=== PATIENT | female | born 1940 | race Caucasian/White ===

== ENCOUNTER 2024-05-23 19:40 | Inpatient (IN) | payer OTHER, BC ==
[2024-05-23 21:18] LABS: BASO % 0.8 % (0-2.0); EOS % 5.1 % (0-4.5); HEMATOCRIT 36.9 % (32.4-45.2); HEMOGLOBIN 12.6 GM/dL (10.7-15.3); LYMPH % 11.5 % (8-40); MCH 30.2 pg (25.7-33.7); MCHC 34.1 g/dl (32.0-36.0); MEAN CELL VOLUME 88.5 fl (80-96); MEAN PLT VOLUME 7.9 fl (7.5-11.1); MONO % 8.3 % (3.8-10.2); NEUT % 74.3 % (42.8-82.8); PLATELET COUNT 284 10^3/uL (134-434); RBC 4.17 M/mm3 (3.60-5.2); RDW 13.4 % (11.6-15.6); WHITE BLOOD COUNT 6.6 K/mm3 (4.0-10.0)
[2024-05-23 21:31] LABS: INR 1.14 (0.83-1.09); PROTHROMBIN TIME (PATIENT) 13.1 SEC (9.7-13.0)
[2024-05-23 21:33] LABS: ACTIVATED PTT 40.3 SECONDS (25.2-36.5)
[2024-05-23 21:51] LABS: POTASSIUM 3.9 mmol/L (3.5-5.1)
[2024-05-23 21:54] LABS: CALCIUM 9.1 mg/dL (8.5-10.1)
[2024-05-23 21:58] LABS: CREATININE 0.7 mg/dL (0.55-1.3)
[2024-05-23 21:59] LABS: BILIRUBIN,TOTAL 0.7 mg/dL (0.2-1)
[2024-05-23 22:00] LABS: TOT PROT 8.3 g/dl (6.4-8.2)
[2024-05-23] MEDS ORDERED: MECLIZINE HCL 25 MG TABLET (FP) ONE (23:03)
[2024-05-23] MEDS: MECLIZINE HCL 25 MG TABLET (FP) PO ONE (23:16)
[2024-05-24 00:33] LABS: EPI CELLS 7 /uL (0-25.1); HYALINE CASTS 1 /uL (0-3.1); PH,URINE 7.5 (5.0-8.0); URINE APPEARANCE CLEAR; URINE BACTERIA 186 /uL (0-1359); URINE BILIRUBIN NEGATIVE (NEGATIVE); URINE COLOR YELLOW; URINE GLUCOSE (UA) 3+ (NEGATIVE); URINE KETONE NEGATIVE (NEGATIVE); URINE LEUK ESTERASE 3+ (NEGATIVE); URINE NITRITE NEGATIVE (NEGATIVE); URINE PROTEIN TRACE (NEGATIVE); URINE RBC 7 /uL (0-23.9); URINE UROBILINOGEN 0.2 mg/dL (0.2-1.0); URINE WBC 818 /uL (0-25.8)
[2024-05-24] MEDS ORDERED: CEFTRIAXONE 1 GM/50 ML BAG ONE (00:44)
[2024-05-24] MEDS: CEFTRIAXONE 1,000 MG in DEXTROSE 5%-WATER - 50 ML IVPB ONE (01:00)
[2024-05-24 04:13] VITALS: BMI 28.5
[2024-05-24 04:30] LABS: YEAST REVIEW (NEGATIVE)
[2024-05-24] MEDS ORDERED: FUROSEMIDE 40 MG/4 ML INJECTABLE VIAL IVPUSH SCH ×3 (06:30→22:00)
[2024-05-24] MEDS: FUROSEMIDE 40 MG/4 ML INJECTABLE VIAL IVPUSH ONE (06:41)
[2024-05-24] MEDS: INSULIN ASPART SLIDING SCALE (NOVOLOG) 1 VIAL SQ SCH (07:00)
[2024-05-24 09:01] LABS: BASO % 0.8 % (0-2.0); EOS % 3.9 % (0-4.5); HEMATOCRIT 38.5 % (32.4-45.2); HEMOGLOBIN 12.9 GM/dL (10.7-15.3); LYMPH % 12.7 % (8-40); MCH 30.1 pg (25.7-33.7); MCHC 33.5 g/dl (32.0-36.0); MEAN CELL VOLUME 89.6 fl (80-96); MEAN PLT VOLUME 8.6 fl (7.5-11.1); MONO % 7.7 % (3.8-10.2); NEUT % 74.9 % (42.8-82.8); PLATELET COUNT 264 10^3/uL (134-434); RDW 13.2 % (11.6-15.6); WHITE BLOOD COUNT 5.8 K/mm3 (4.0-10.0)
[2024-05-24 09:48] LABS: POTASSIUM 3.4 mmol/L (3.5-5.1)
[2024-05-24 09:50] LABS: ALBUMIN 3.7 g/dl (3.4-5.0); BLOOD UREA NITROGEN 10.6 mg/dL (7-18); CALCIUM 8.8 mg/dL (8.5-10.1); MAGNESIUM 2.2 mg/dL (1.8-2.4)
[2024-05-24 09:54] LABS: CREATININE 0.7 mg/dL (0.55-1.3); PHOSPHOROUS 3.4 mg/dL (2.5-4.9)
[2024-05-24 09:58] LABS: TOT PROT 7.9 g/dl (6.4-8.2)
[2024-05-24 10:08] LABS: BILIRUBIN,TOTAL 0.6 mg/dL (0.2-1)
[2024-05-24] MEDS: ASPIRIN 81 MG CHEWABLE TABLETS PO SCH (12:04)
[2024-05-24] MEDS: LORATADINE 10 MG TABLET PO SCH (12:05)
[2024-05-24] MEDS: FAMOTIDINE 20 MG TABLET PO SCH (12:05)
[2024-05-24] MEDS: GABAPENTIN 300 MG CAPSULE PO SCH (12:05)
[2024-05-24] MEDS: ENOXAPARIN NA (PORCINE) 40 MG/0.4 ML DISP.SYRIN SQ SCH (12:05)
[2024-05-24] MEDS: MECLIZINE HCL 12.5 MG TABLET PO PRN (12:05)
[2024-05-24] MEDS: amLODIPine BESYLATE 5 MG TABLET (FP) PO SCH (12:05)
[2024-05-24] MEDS: ISOSORBIDE MONONITRATE 30 MG TAB.SR.24H (FP) PO SCH (12:05)
[2024-05-24] MEDS: POTASSIUM CHLORIDE ORAL LIQUID 20 MEQ/15 ML PO ONE (12:06)
[2024-05-24] MEDS ORDERED: MECLIZINE HCL 25 MG TABLET (FP) PO PRN (15:31)
[2024-05-24] MEDS: MECLIZINE HCL 12.5 MG TABLET PO SCH (17:02)
[2024-05-24] MEDS: FUROSEMIDE 40 MG/4 ML INJECTABLE VIAL IVPUSH SCH (17:09)
[2024-05-24] MEDS: ATORVASTATIN CA 10 MG TABLET (FP) PO SCH (21:54)
[2024-05-24] MEDS: MELATONIN 5 MG TABLETS PO ONE (22:03)
[2024-05-25 08:31] LABS: BASO % 0.7 % (0-2.0); EOS % 3.8 % (0-4.5); HEMATOCRIT 34.8 % (32.4-45.2); LYMPH % 14.5 % (8-40); MCH 30.5 pg (25.7-33.7); MCHC 34.4 g/dl (32.0-36.0); MEAN CELL VOLUME 88.6 fl (80-96); MEAN PLT VOLUME 8.7 fl (7.5-11.1); MONO % 10.3 % (3.8-10.2); NEUT % 70.7 % (42.8-82.8); PLATELET COUNT 260 10^3/uL (134-434); RBC 3.93 M/mm3 (3.60-5.2); RDW 13.1 % (11.6-15.6); WHITE BLOOD COUNT 5.6 K/mm3 (4.0-10.0)
[2024-05-25 08:51] LABS: POTASSIUM 3.1 mmol/L (3.5-5.1)
[2024-05-25 08:54] LABS: CALCIUM 8.7 mg/dL (8.5-10.1)
[2024-05-25 08:58] LABS: CREATININE 0.8 mg/dL (0.55-1.3)
[2024-05-25] MEDS ORDERED: LOSARTAN POTASSIUM 50 MG TABLET PO SCH (10:00)
[2024-05-25] MEDS: CARVEDILOL 12.5 MG TABLET (FP) PO SCH (11:46)
[2024-05-25] MEDS: POTASSIUM CHLORIDE ORAL LIQUID 20 MEQ/15 ML PO ONE (14:34)
[2024-05-25] MEDS: MELATONIN 5 MG TABLETS PO PRN (21:33)
[2024-05-26] MEDS: POTASSIUM CHLORIDE TABS 20 MEQ TABLET.ER (FP) PO SCH ×2 (10:22→16:51)
[2024-05-26] MEDS: CEPHALEXIN MONOHYDRATE 500 MG CAPSULE (UD) PO SCH (10:22)
[2024-05-26] MEDS: SACUBITRIL/VALSARTAN 24 MG-26 MG TABLET PO SCH (12:03)
[2024-05-26] MEDS: SPIRONOLACTONE 25 MG TABLET PO SCH (16:51)
[2024-05-26 17:29] LABS: POTASSIUM 4.2 mmol/L (3.5-5.1)
[2024-05-26 17:30] LABS: BLOOD UREA NITROGEN 22.6 mg/dL (7-18)
[2024-05-26 17:34] LABS: CREATININE 0.9 mg/dL (0.55-1.3)
[2024-05-26] MEDS: GABAPENTIN 300 MG CAPSULE PO SCH (21:19)
[2024-05-27 05:21] VITALS: PULSE 68
[2024-05-27] MEDS: FUROSEMIDE 40 MG/4 ML INJECTABLE VIAL IVPUSH SCH (06:14)
[2024-05-27 09:08] LABS: POTASSIUM 3.8 mmol/L (3.5-5.1)
[2024-05-27 09:11] LABS: BLOOD UREA NITROGEN 24.2 mg/dL (7-18); CALCIUM 9.6 mg/dL (8.5-10.1); MAGNESIUM 2.3 mg/dL (1.8-2.4)
[2024-05-27 09:15] LABS: CREATININE 0.9 mg/dL (0.55-1.3)
[2024-05-27] MEDS: EMPAGLIFLOZIN (JARDIANCE) 10 MG TABLET PO SCH (11:16)
[2024-05-27] MEDS: MECLIZINE HCL 12.5 MG TABLET PO PRN (17:54)
[2024-05-27 18:25] VITALS: BP 136/70; RESP 18; TEMP 97.2
== END 2024-05-27 18:50 | disposition home or self-care (01) | DRG 291 ==
LOC: JER 19:40 → JERBED 05-24 01:18 → J7W 05-24 03:44 → OBSVTOIN 05-24 10:24
PROVIDERS: ADMIT Internal Medicine; ATTEND Nurse Practitioner
DX: I11.0 Hypertensive heart disease with heart failure (principal); I50.23 Acute on chronic systolic (congestive) heart failure; E87.1 Hypo-osmolality and hyponatremia; N39.0 Urinary tract infection, site not specified; I25.10 Atherosclerotic heart disease of native coronary artery without angina pectoris; Z95.1 Presence of aortocoronary bypass graft; E11.9 Type 2 diabetes mellitus without complications; K21.9 Gastro-esophageal reflux disease without esophagitis; J45.909 Unspecified asthma, uncomplicated; F32.A Depression, unspecified; E78.5 Hyperlipidemia, unspecified; E11.51 Type 2 diabetes mellitus with diabetic peripheral angiopathy without gangrene; I25.2 Old myocardial infarction; R42 Dizziness and giddiness; I16.0 Hypertensive urgency; E87.6 Hypokalemia
CPT/HCPCS: 36415; 70450-TC; 70551-TC; 71046-TC-FY; 80048; 80053; 80061; 81003; 82962; 83036; 83735; 83880; 83930; 84100; 84300; 84443; 84484; 85025; 85610; 85730; 87077; 87086; 93005; 93010; 93306-TC; 97116-GP; 97162-GP; 99285-25; G0378

== ENCOUNTER 2024-07-23 17:23 | Inpatient (IN) | payer OTHER, BC ==
[2024-07-23 18:59] LABS: EPI CELLS 2 /uL (0-25.1); HYALINE CASTS 1 /uL (0-3.1); PH,URINE 7.5 (5.0-8.0); URINE APPEARANCE CLEAR; URINE BACTERIA 82 /uL (0-1359); URINE BILIRUBIN NEGATIVE (NEGATIVE); URINE COLOR YELLOW; URINE GLUCOSE (UA) 2+ (NEGATIVE); URINE KETONE NEGATIVE (NEGATIVE); URINE LEUK ESTERASE 3+ (NEGATIVE); URINE NITRITE NEGATIVE (NEGATIVE); URINE PROTEIN NEGATIVE (NEGATIVE); URINE RBC 9 /uL (0-23.9); URINE UROBILINOGEN 0.2 mg/dL (0.2-1.0); URINE WBC 537 /uL (0-25.8)
[2024-07-23 19:07] LABS: BASO % 0.9 % (0-2.0); EOS % 4.9 % (0-4.5); HEMATOCRIT 34.3 % (32.4-45.2); HEMOGLOBIN 11.5 GM/dL (10.7-15.3); LYMPH % 12.6 % (8-40); MCHC 33.5 g/dl (32.0-36.0); MEAN CELL VOLUME 86.6 fl (80-96); MEAN PLT VOLUME 8.3 fl (7.5-11.1); MONO % 6.9 % (3.8-10.2); NEUT % 74.7 % (42.8-82.8); PLATELET COUNT 235 10^3/uL (134-434); RBC 3.95 M/mm3 (3.60-5.2); RDW 14.4 % (11.6-15.6); WHITE BLOOD COUNT 6.3 K/mm3 (4.0-10.0)
[2024-07-23 19:22] LABS: POTASSIUM 4.1 mmol/L (3.5-5.1)
[2024-07-23 19:24] LABS: CALCIUM 8.9 mg/dL (8.5-10.1)
[2024-07-23 19:25] LABS: ALBUMIN 3.5 g/dl (3.4-5.0); BLOOD UREA NITROGEN 14.1 mg/dL (7-18)
[2024-07-23 19:27] LABS: CREATININE 0.8 mg/dL (0.55-1.3)
[2024-07-23 19:29] LABS: BILIRUBIN,TOTAL 0.6 mg/dL (0.2-1); TOT PROT 7.6 g/dl (6.4-8.2)
[2024-07-23 19:32] LABS: N-TERMINAL BNP 2701.4 pg/ml (5-450)
[2024-07-23] MEDS ORDERED: CEFTRIAXONE 1 GM/50 ML BAG ONE (19:51)
[2024-07-23] MEDS: CEFTRIAXONE 1 GM in DEXTROSE 5%-WATER - 100 ML IVPB ONE (20:08)
[2024-07-23] MEDS ORDERED: AZITHROMYCIN IVPB 500 MG/250 ML BAG IVPB ONE (20:24)
[2024-07-23] MEDS: AZITHROMYCIN IVPB 500 MG in DEXTROSE 5%-WATER - 250 ML IVPB ONE (20:31)
[2024-07-23] MEDS ORDERED: GABAPENTIN 400 MG CAPSULE ONE (22:43)
[2024-07-23] MEDS: GABAPENTIN 400 MG CAPSULE PO ONE (23:34)
[2024-07-24] MEDS ORDERED: ALBUTEROL SO4 HFA INHALER IH PRN (01:53)
[2024-07-24] MEDS ORDERED: MELATONIN 5 MG TABLETS PO PRN (01:54)
[2024-07-24 04:36] VITALS: RESP 18
[2024-07-24] MEDS: FUROSEMIDE 40 MG/4 ML INJECTABLE VIAL IVPUSH SCH (06:20)
[2024-07-24] MEDS: INSULIN ASPART SLIDING SCALE (NOVOLOG) 1 VIAL SQ SCH (07:07)
[2024-07-24 09:03] LABS: HEMATOCRIT 32.7 % (32.4-45.2); HEMOGLOBIN 10.9 GM/dL (10.7-15.3); MCH 29.1 pg (25.7-33.7); MCHC 33.3 g/dl (32.0-36.0); MEAN CELL VOLUME 87.3 fl (80-96); MEAN PLT VOLUME 8.6 fl (7.5-11.1); PLATELET COUNT 203 10^3/uL (134-434); RBC 3.75 M/mm3 (3.60-5.2); RDW 14.3 % (11.6-15.6)
[2024-07-24 09:07] LABS: POTASSIUM 3.4 mmol/L (3.5-5.1)
[2024-07-24 09:16] LABS: ALBUMIN 3.2 g/dl (3.4-5.0); BILIRUBIN,TOTAL 0.5 mg/dL (0.2-1); BLOOD UREA NITROGEN 13.1 mg/dL (7-18); CALCIUM 8.6 mg/dL (8.5-10.1); TOT PROT 6.8 g/dl (6.4-8.2)
[2024-07-24 09:19] LABS: CREATININE 0.7 mg/dL (0.55-1.3)
[2024-07-24] MEDS ORDERED: FUROSEMIDE 40 MG/4 ML INJECTABLE VIAL IVPUSH SCH (10:00)
[2024-07-24] MEDS: CEFTRIAXONE 1 GM in DEXTROSE 5%-WATER - 50 ML IVPB SCH (10:41)
[2024-07-24] MEDS: SACUBITRIL/VALSARTAN 24 MG-26 MG TABLET PO SCH (10:41)
[2024-07-24] MEDS: SPIRONOLACTONE 25 MG TABLET PO SCH (10:41)
[2024-07-24] MEDS: ENOXAPARIN NA (PORCINE) 40 MG/0.4 ML DISP.SYRIN SQ SCH (10:41)
[2024-07-24] MEDS: CARVEDILOL 12.5 MG TABLET (FP) PO SCH (10:41)
[2024-07-24] MEDS: ISOSORBIDE MONONITRATE 30 MG TAB.SR.24H (FP) PO SCH (10:41)
[2024-07-24] MEDS: POTASSIUM CHLORIDE ORAL LIQUID 20 MEQ/15 ML PO ONE (14:28)
[2024-07-24] MEDS: FUROSEMIDE 40 MG/4 ML INJECTABLE VIAL IVPUSH ONE (14:29)
[2024-07-24] MEDS: AZITHROMYCIN IVPB 500 MG/250 ML BAG IVPB ONE (17:00)
[2024-07-24] MEDS: ATORVASTATIN CA 10 MG TABLET (FP) PO SCH (22:50)
[2024-07-24] MEDS: GABAPENTIN 300 MG CAPSULE PO SCH (22:50)
[2024-07-25] MEDS: FUROSEMIDE 40 MG/4 ML INJECTABLE VIAL IVPUSH SCH (06:35)
[2024-07-25 09:20] LABS: BASO % 0.8 % (0-2.0); EOS % 4.5 % (0-4.5); HEMATOCRIT 32.3 % (32.4-45.2); HEMOGLOBIN 10.8 GM/dL (10.7-15.3); LYMPH % 23.6 % (8-40); MCH 29.1 pg (25.7-33.7); MCHC 33.6 g/dl (32.0-36.0); MEAN CELL VOLUME 86.5 fl (80-96); MEAN PLT VOLUME 8.8 fl (7.5-11.1); MONO % 13.9 % (3.8-10.2); NEUT % 57.2 % (42.8-82.8); PLATELET COUNT 204 10^3/uL (134-434); RBC 3.73 M/mm3 (3.60-5.2); RDW 14.6 % (11.6-15.6); WHITE BLOOD COUNT 4.1 K/mm3 (4.0-10.0)
[2024-07-25 09:32] LABS: POTASSIUM 3.8 mmol/L (3.5-5.1)
[2024-07-25 09:34] LABS: CALCIUM 8.6 mg/dL (8.5-10.1)
[2024-07-25 09:35] LABS: BLOOD UREA NITROGEN 13.8 mg/dL (7-18)
[2024-07-25] MEDS: SACUBITRIL/VALSARTAN 49 MG-51 MG TABLET PO SCH (09:52)
[2024-07-26 09:02] LABS: BASO % 1.1 % (0-2.0); EOS % 4.6 % (0-4.5); HEMATOCRIT 35.4 % (32.4-45.2); HEMOGLOBIN 11.6 GM/dL (10.7-15.3); LYMPH % 24.7 % (8-40); MCH 28.9 pg (25.7-33.7); MCHC 32.8 g/dl (32.0-36.0); MEAN CELL VOLUME 88.2 fl (80-96); MEAN PLT VOLUME 8.5 fl (7.5-11.1); MONO % 13.8 % (3.8-10.2); NEUT % 55.8 % (42.8-82.8); PLATELET COUNT 215 10^3/uL (134-434); RBC 4.01 M/mm3 (3.60-5.2); RDW 14.5 % (11.6-15.6); WHITE BLOOD COUNT 4.5 K/mm3 (4.0-10.0)
[2024-07-26 09:21] LABS: POTASSIUM 3.5 mmol/L (3.5-5.1)
[2024-07-26 09:28] LABS: CALCIUM 8.8 mg/dL (8.5-10.1)
[2024-07-26 09:29] LABS: ALBUMIN 3.3 g/dl (3.4-5.0); BLOOD UREA NITROGEN 16.4 mg/dL (7-18); MAGNESIUM 2.1 mg/dL (1.8-2.4)
[2024-07-26 09:32] LABS: CREATININE 1.1 mg/dL (0.55-1.3)
[2024-07-26 09:33] LABS: BILIRUBIN,TOTAL 0.4 mg/dL (0.2-1)
[2024-07-26] MEDS: GABAPENTIN 300 MG CAPSULE PO SCH (22:01)
[2024-07-27 08:40] LABS: EOS % 6.1 % (0-4.5); HEMOGLOBIN 11.4 GM/dL (10.7-15.3); LYMPH % 21.5 % (8-40); MCH 28.5 pg (25.7-33.7); MCHC 32.5 g/dl (32.0-36.0); MEAN CELL VOLUME 87.6 fl (80-96); MEAN PLT VOLUME 8.6 fl (7.5-11.1); MONO % 12.7 % (3.8-10.2); NEUT % 58.7 % (42.8-82.8); PLATELET COUNT 211 10^3/uL (134-434); RBC 3.99 M/mm3 (3.60-5.2); RDW 14.6 % (11.6-15.6); WHITE BLOOD COUNT 4.7 K/mm3 (4.0-10.0)
[2024-07-27 09:11] LABS: POTASSIUM 3.4 mmol/L (3.5-5.1)
[2024-07-27 09:17] LABS: ALBUMIN 3.2 g/dl (3.4-5.0); BLOOD UREA NITROGEN 18.5 mg/dL (7-18); CALCIUM 8.6 mg/dL (8.5-10.1)
[2024-07-27 09:21] LABS: BILIRUBIN,TOTAL 0.3 mg/dL (0.2-1); CREATININE 1.1 mg/dL (0.55-1.3)
[2024-07-27 09:22] LABS: TOT PROT 6.6 g/dl (6.4-8.2)
[2024-07-27] MEDS: ASPIRIN COATED 81 MG TABLET.EC PO SCH (09:52)
[2024-07-27] MEDS: LISINOPRIL 10 MG TABLET PO SCH (09:52)
[2024-07-27] MEDS: POTASSIUM CHLORIDE ORAL LIQUID 20 MEQ/15 ML PO ONE (10:53)
[2024-07-27 11:19] VITALS: BP 150/64; PULSE 70; TEMP 98.3
== END 2024-07-27 16:19 | disposition home or self-care (01) | DRG 291 ==
LOC: JER 17:23 → JERBED 20:24 → OBSVTOIN 23:03 → J8W 23:46
PROVIDERS: ADMIT Internal Medicine; ATTEND Nurse Practitioner Family
DX: I11.0 Hypertensive heart disease with heart failure (principal); I50.43 Acute on chronic combined systolic (congestive) and diastolic (congestive) heart failure; E87.1 Hypo-osmolality and hyponatremia; E11.51 Type 2 diabetes mellitus with diabetic peripheral angiopathy without gangrene; I25.10 Atherosclerotic heart disease of native coronary artery without angina pectoris; K21.9 Gastro-esophageal reflux disease without esophagitis; E78.5 Hyperlipidemia, unspecified; R19.7 Diarrhea, unspecified; E66.9 Obesity, unspecified; R42 Dizziness and giddiness; J45.909 Unspecified asthma, uncomplicated; Z95.5 Presence of coronary angioplasty implant and graft; Z95.1 Presence of aortocoronary bypass graft; Z68.29 Body mass index [BMI] 29.0-29.9, adult; I25.2 Old myocardial infarction
CPT/HCPCS: 0241U-QW; 36415; 71045-TC-FY; 74177-TC; 80048; 80053; 81003; 82962; 83036; 83605; 83735; 83880; 84100; 84484; 85025; 85027; 87086; 87899; 93005; 93010; 97116-GP; 97161-GP; 99285-25; G0378; Q9967

== ENCOUNTER 2024-09-05 17:22 | Inpatient (IN) | payer OTHER, BC ==
[2024-09-05 19:25] LABS: HEMATOCRIT 41.1 % (32.4-45.2); HEMOGLOBIN 13.8 GM/dL (10.7-15.3); MCH 29.2 pg (25.7-33.7); MCHC 33.6 g/dl (32.0-36.0); MEAN CELL VOLUME 86.8 fl (80-96); MEAN PLT VOLUME 9.4 fl (7.5-11.1); PLATELET COUNT 195 10^3/uL (134-434); RBC 4.74 M/mm3 (3.60-5.2); RDW 15.1 % (11.6-15.6); WHITE BLOOD COUNT 6.3 K/mm3 (4.0-10.0)
[2024-09-05 19:31] LABS: INR 1.07 (0.83-1.09); PROTHROMBIN TIME (PATIENT) 12.3 SEC (9.7-13.0)
[2024-09-05 19:53] LABS: POTASSIUM 4.6 mmol/L (3.5-5.1)
[2024-09-05 19:58] LABS: ALBUMIN 3.8 g/dl (3.4-5.0); BLOOD UREA NITROGEN 23.4 mg/dL (7-18); CALCIUM 9.6 mg/dL (8.5-10.1)
[2024-09-05 19:59] LABS: MAGNESIUM 1.8 mg/dL (1.8-2.4)
[2024-09-05 20:01] LABS: CREATININE 1.2 mg/dL (0.55-1.3)
[2024-09-05 20:02] LABS: BILIRUBIN,TOTAL 0.6 mg/dL (0.2-1)
[2024-09-05 20:03] LABS: TOT PROT 7.9 g/dl (6.4-8.2)
[2024-09-06] MEDS: INSULIN ASPART SLIDING SCALE (NOVOLOG) 1 VIAL SQ SCH (06:23)
[2024-09-06] MEDS: ASPIRIN 81 MG CHEWABLE TABLETS PO SCH (06:45)
[2024-09-06] MEDS: SPIRONOLACTONE 25 MG TABLET PO SCH (06:45)
[2024-09-06] MEDS: CARVEDILOL 12.5 MG TABLET (FP) PO SCH (06:45)
[2024-09-06] MEDS: ISOSORBIDE MONONITRATE 30 MG TAB.SR.24H (FP) PO SCH (06:46)
[2024-09-06 06:52] LABS: BASO % 0.8 % (0-2.0); EOS % 4.4 % (0-4.5); HEMATOCRIT 39.8 % (32.4-45.2); HEMOGLOBIN 13.3 GM/dL (10.7-15.3); LYMPH % 21.7 % (8-40); MCHC 33.4 g/dl (32.0-36.0); MEAN CELL VOLUME 86.7 fl (80-96); MEAN PLT VOLUME 9.6 fl (7.5-11.1); MONO % 9.6 % (3.8-10.2); NEUT % 63.5 % (42.8-82.8); PLATELET COUNT 186 10^3/uL (134-434); RBC 4.59 M/mm3 (3.60-5.2); WHITE BLOOD COUNT 6.2 K/mm3 (4.0-10.0)
[2024-09-06 07:10] LABS: CALCIUM 8.9 mg/dL (8.5-10.1)
[2024-09-06 07:11] LABS: ALBUMIN 3.5 g/dl (3.4-5.0); BLOOD UREA NITROGEN 19.4 mg/dL (7-18); MAGNESIUM 1.8 mg/dL (1.8-2.4)
[2024-09-06 07:14] LABS: PHOSPHOROUS 2.6 mg/dL (2.5-4.9)
[2024-09-06 07:16] LABS: BILIRUBIN,TOTAL 0.6 mg/dL (0.2-1); TOT PROT 7.3 g/dl (6.4-8.2)
[2024-09-06] MEDS: ENOXAPARIN NA (PORCINE) 40 MG/0.4 ML DISP.SYRIN SQ SCH (10:17)
[2024-09-06] MEDS: FUROSEMIDE 40 MG TABLET (FP) PO SCH (10:18)
[2024-09-06] MEDS: LISINOPRIL 10 MG TABLET PO SCH (10:19)
[2024-09-06 15:29] LABS: N-TERMINAL BNP 1555.8 pg/ml (5-450)
[2024-09-06] MEDS: SODIUM CHLORIDE 250 ML IV STA (16:49)
[2024-09-06] MEDS: guaiFENesin 200 MG/10 ML 10 ML UNIT-DOSE CUPS PO PRN (18:33)
[2024-09-06] MEDS: ATORVASTATIN CA 10 MG TABLET (FP) PO SCH (22:20)
[2024-09-06] MEDS: GABAPENTIN 300 MG CAPSULE PO SCH (22:21)
[2024-09-07] MEDS ORDERED: INSULIN ASPART SLIDING SCALE (NOVOLOG) 1 VIAL SQ ONE (06:30)
[2024-09-07 09:06] LABS: HEMATOCRIT 37.9 % (32.4-45.2); HEMOGLOBIN 12.7 GM/dL (10.7-15.3); MCH 29.1 pg (25.7-33.7); MCHC 33.6 g/dl (32.0-36.0); MEAN CELL VOLUME 86.5 fl (80-96); MEAN PLT VOLUME 9.7 fl (7.5-11.1); PLATELET COUNT 167 10^3/uL (134-434); RBC 4.38 M/mm3 (3.60-5.2); RDW 15.2 % (11.6-15.6); WHITE BLOOD COUNT 5.8 K/mm3 (4.0-10.0)
[2024-09-07 09:41] LABS: POTASSIUM 3.9 mmol/L (3.5-5.1)
[2024-09-07 09:46] LABS: BLOOD UREA NITROGEN 32.3 mg/dL (7-18)
[2024-09-07 09:47] LABS: CALCIUM 9.2 mg/dL (8.5-10.1)
[2024-09-07 09:49] LABS: CREATININE 1.2 mg/dL (0.55-1.3)
[2024-09-07 10:10] LABS: CHOLESTEROL 116 mg/dL (50-200); LDL CHOLESTEROL (ONLY SJRH) 47 mg/dL (5-100)
[2024-09-07 10:13] LABS: HDL CHOLESTEROL 45 mg/dL (40-60)
[2024-09-07 11:27] LABS: URINE APPEARANCE Clear; URINE BILIRUBIN Negative (NEGATIVE); URINE COLOR Yellow; URINE GLUCOSE (UA) Negative (NEGATIVE); URINE KETONE Negative (NEGATIVE); URINE LEUK ESTERASE 3+ (NEGATIVE); URINE NITRITE Negative (NEGATIVE); URINE PROTEIN Negative (NEGATIVE); URINE UROBILINOGEN 0.2 mg/dL (0.2-1.0)
[2024-09-07 11:36] LABS: EPI CELLS 14.2 /uL (0-25.1); HYALINE CASTS 0.82 /uL (0-3.1); URINE BACTERIA 17 /uL (0-1359); URINE RBC 3.1 /uL (0-23.9); URINE WBC 51.2 /uL (0-25.8)
[2024-09-07] MEDS: FUROSEMIDE 40 MG TABLET (FP) PO SCH (13:04)
[2024-09-07] MEDS: CARVEDILOL 6.25 MG TABLET (FP) PO SCH (21:43)
[2024-09-07] MEDS: BANATROL PLUS POWDER PACKET PO SCH (21:44)
[2024-09-08 09:03] LABS: CALCIUM 8.8 mg/dL (8.5-10.1)
[2024-09-08 09:04] LABS: ALBUMIN 3.3 g/dl (3.4-5.0); BLOOD UREA NITROGEN 43.9 mg/dL (7-18)
[2024-09-08 09:07] LABS: CREATININE 1.3 mg/dL (0.55-1.3)
[2024-09-08 09:08] LABS: BILIRUBIN,TOTAL 0.3 mg/dL (0.2-1); TOT PROT 6.5 g/dl (6.4-8.2)
[2024-09-08] MEDS: LOPERAMIDE HCL 2 MG CAPSULE PO ONE (14:36)
[2024-09-09] MEDS ORDERED: INSULIN ASPART SLIDING SCALE (NOVOLOG) 1 VIAL SQ ONE (06:44)
[2024-09-09 08:29] LABS: HEMATOCRIT 34.7 % (32.4-45.2); HEMOGLOBIN 11.4 GM/dL (10.7-15.3); MCHC 32.9 g/dl (32.0-36.0); MEAN CELL VOLUME 88.4 fl (80-96); MEAN PLT VOLUME 9.9 fl (7.5-11.1); PLATELET COUNT 155 10^3/uL (134-434); RBC 3.93 M/mm3 (3.60-5.2); RDW 15.4 % (11.6-15.6)
[2024-09-09 08:47] LABS: POTASSIUM 4.4 mmol/L (3.5-5.1)
[2024-09-09 08:55] LABS: CALCIUM 8.6 mg/dL (8.5-10.1)
[2024-09-09 08:56] LABS: BLOOD UREA NITROGEN 32.9 mg/dL (7-18); MAGNESIUM 1.9 mg/dL (1.8-2.4)
[2024-09-09 08:59] LABS: PHOSPHOROUS 3.1 mg/dL (2.5-4.9)
[2024-09-09 09:06] LABS: CREATININE 1.1 mg/dL (0.55-1.3)
[2024-09-10 08:16] LABS: POTASSIUM 4.7 mmol/L (3.5-5.1)
[2024-09-10 08:19] LABS: CALCIUM 8.9 mg/dL (8.5-10.1)
[2024-09-10 08:20] LABS: BLOOD UREA NITROGEN 37.7 mg/dL (7-18); MAGNESIUM 1.8 mg/dL (1.8-2.4)
[2024-09-10 08:23] LABS: CREATININE 1.3 mg/dL (0.55-1.3)
[2024-09-10 08:24] LABS: PHOSPHOROUS 3.3 mg/dL (2.5-4.9)
[2024-09-11 08:21] LABS: HEMATOCRIT 34.1 % (32.4-45.2); HEMOGLOBIN 11.1 GM/dL (10.7-15.3); MCH 29.3 pg (25.7-33.7); MCHC 32.7 g/dl (32.0-36.0); MEAN CELL VOLUME 89.5 fl (80-96); MEAN PLT VOLUME 9.8 fl (7.5-11.1); PLATELET COUNT 189 10^3/uL (134-434); RBC 3.81 M/mm3 (3.60-5.2); RDW 15.9 % (11.6-15.6); WHITE BLOOD COUNT 6.7 K/mm3 (4.0-10.0)
[2024-09-11 08:33] LABS: POTASSIUM 4.9 mmol/L (3.5-5.1)
[2024-09-11 08:34] LABS: BLOOD UREA NITROGEN 36.3 mg/dL (7-18); CALCIUM 8.9 mg/dL (8.5-10.1); MAGNESIUM 1.9 mg/dL (1.8-2.4)
[2024-09-11 08:38] LABS: CREATININE 1.2 mg/dL (0.55-1.3); PHOSPHOROUS 3.7 mg/dL (2.5-4.9)
[2024-09-11 14:13] VITALS: BMI 25.3
[2024-09-11] MEDS: LOPERAMIDE HCL 2 MG CAPSULE PO ONE (14:23)
[2024-09-11] MEDS: ONDANSETRON 4 MG/2 ML VIAL IVPUSH PRN (14:23)
[2024-09-11] MEDS: LOPERAMIDE HCL 1 MG/5 ML UNIT DOSE CUP PO ONE (14:35)
[2024-09-11] MEDS: LOPERAMIDE HCL 2 MG CAPSULE PO PRN (22:43)
[2024-09-12 08:44] LABS: BLOOD UREA NITROGEN 36.6 mg/dL (7-18); CALCIUM 9.5 mg/dL (8.5-10.1); MAGNESIUM 2.1 mg/dL (1.8-2.4)
[2024-09-12 08:48] LABS: CREATININE 1.4 mg/dL (0.55-1.3); PHOSPHOROUS 4.2 mg/dL (2.5-4.9)
[2024-09-12] MEDS: SODIUM CHLORIDE 500 ML IV STA (11:38)
[2024-09-12] MEDS: SODIUM ZIRCONIUM CYCLOSILICATE (LOKELMA) 5 GM PACKET PO SCH (12:32)
[2024-09-12 16:16] LABS: POTASSIUM 4.2 mmol/L (3.5-5.1)
[2024-09-12 16:19] LABS: BLOOD UREA NITROGEN 35.3 mg/dL (7-18); CALCIUM 9.3 mg/dL (8.5-10.1)
[2024-09-12 16:23] LABS: CREATININE 1.4 mg/dL (0.55-1.3)
[2024-09-13] MEDS: ENOXAPARIN NA (PORCINE) 30 MG/0.3 ML DISP.SYRIN SQ SCH (10:40)
[2024-09-13 11:36] LABS: HEMATOCRIT 35.9 % (32.4-45.2); HEMOGLOBIN 11.9 GM/dL (10.7-15.3); MCH 29.4 pg (25.7-33.7); MCHC 33.1 g/dl (32.0-36.0); MEAN CELL VOLUME 88.9 fl (80-96); MEAN PLT VOLUME 9.2 fl (7.5-11.1); PLATELET COUNT 243 10^3/uL (134-434); RBC 4.03 M/mm3 (3.60-5.2); RDW 16.4 % (11.6-15.6); WHITE BLOOD COUNT 7.6 K/mm3 (4.0-10.0)
[2024-09-13 12:02] LABS: POTASSIUM 3.9 mmol/L (3.5-5.1)
[2024-09-13 12:03] LABS: BLOOD UREA NITROGEN 37.1 mg/dL (7-18); CALCIUM 9.3 mg/dL (8.5-10.1)
[2024-09-13 12:07] LABS: CREATININE 1.3 mg/dL (0.55-1.3)
[2024-09-13] MEDS ORDERED: LOPERAMIDE HCL 2 MG CAPSULE PO PRN (13:13)
[2024-09-13] MEDS ORDERED: guaiFENesin 200 MG/10 ML 10 ML UNIT-DOSE CUPS PO PRN (13:13)
[2024-09-13] MEDS ORDERED: ONDANSETRON 4 MG/2 ML VIAL IVPUSH PRN (13:13)
[2024-09-13] MEDS: FAMOTIDINE 20 MG TABLET PO ONE (16:54)
[2024-09-13] MEDS: INSULIN ASPART SLIDING SCALE (NOVOLOG) 1 VIAL SQ SCH (18:12)
[2024-09-13] MEDS: BANATROL PLUS POWDER PACKET PO SCH (19:10)
[2024-09-13] MEDS: GABAPENTIN 300 MG CAPSULE PO SCH (22:20)
[2024-09-13] MEDS: CARVEDILOL 6.25 MG TABLET (FP) PO SCH (22:21)
[2024-09-13] MEDS: ATORVASTATIN CA 10 MG TABLET (FP) PO SCH (22:21)
[2024-09-14 07:41] LABS: HEMATOCRIT 32.8 % (32.4-45.2); HEMOGLOBIN 10.9 GM/dL (10.7-15.3); MCH 29.8 pg (25.7-33.7); MCHC 33.2 g/dl (32.0-36.0); MEAN CELL VOLUME 89.7 fl (80-96); MEAN PLT VOLUME 9.2 fl (7.5-11.1); PLATELET COUNT 214 10^3/uL (134-434); RBC 3.66 M/mm3 (3.60-5.2); RDW 16.3 % (11.6-15.6); WHITE BLOOD COUNT 6.4 K/mm3 (4.0-10.0)
[2024-09-14 07:49] LABS: POTASSIUM 4.1 mmol/L (3.5-5.1)
[2024-09-14 08:04] LABS: BLOOD UREA NITROGEN 35.2 mg/dL (7-18); CALCIUM 8.9 mg/dL (8.5-10.1)
[2024-09-14 08:07] LABS: CREATININE 1.2 mg/dL (0.55-1.3)
[2024-09-14] MEDS: LISINOPRIL 5 MG TABLET PO SCH (09:48)
[2024-09-14] MEDS: FUROSEMIDE 40 MG TABLET (FP) PO SCH (09:49)
[2024-09-14] MEDS: ENOXAPARIN NA (PORCINE) 30 MG/0.3 ML DISP.SYRIN SQ SCH (09:49)
[2024-09-14] MEDS: ASPIRIN 81 MG CHEWABLE TABLETS PO SCH (09:50)
[2024-09-14 15:19] VITALS: BP 157/57; PULSE 67; RESP 17; TEMP 97.7
[2024-09-15 20:07] LABS: GLIADIN ANTIBODY IGA 3 units (0-19); GLIADIN ANTIBODY IGG 2 units (0-19); TRANSGLUTAMINASE IGG 3 U/mL (0-5)
[2024-09-30 15:08] LABS: STOOL PH 6.5 (7.0-7.5)
== END 2024-09-14 18:27 | disposition home or self-care (01) | DRG 641 ==
LOC: JER 17:22 → JERBED 20:25 → J4W 23:52 → J4S 09-06 04:48 → OBSVTOIN 09-06 13:55 → J7W 09-13 13:09
PROVIDERS: ADMIT Internal Medicine; ATTEND Internal Medicine
DX: E87.1 Hypo-osmolality and hyponatremia (principal); I50.22 Chronic systolic (congestive) heart failure; I11.0 Hypertensive heart disease with heart failure; R53.1 Weakness; R62.7 Adult failure to thrive; E11.9 Type 2 diabetes mellitus without complications; I25.10 Atherosclerotic heart disease of native coronary artery without angina pectoris; E78.5 Hyperlipidemia, unspecified
CPT/HCPCS: 36415; 71045-TC-FY; 80048; 80053; 80061; 81003; 82438; 82533; 82784; 82962; 83036; 83516; 83735; 83880; 83930; 83935; 83986; 84100; 84300; 84302; 84443; 84484; 84999; 85025; 85027; 85610; 86850; 86900; 86901; 87086; 87635; 93005; 93010; 97116-GP; 97161-GP; 99285-25; G0378

== ENCOUNTER 2024-12-26 18:07 | Inpatient (IN) | payer OTHER, BC ==
[2024-12-26 20:29] LABS: ABSOLUTE IMMATURE GRANULOCYTES 0.01 x10^3/uL (0.0-0.031); BASOPHILS # 0.07 x10^3/uL (0.01-0.08); EOSINOPHIL % 3.1 % (0.7-5.8); EOSINOPHILS # 0.17 x10^3/uL (0.04-0.36); HEMATOCRIT 39.4 % (34.1-44.9); HEMOGLOBIN 12.1 g/dL (11.2-15.7); MCHC 30.7 g/dl (32.2-35.5); MONOCYTE # 0.47 x10^3/uL (0.24-0.86); MONOCYTE % 8.6 % (4.7-12.5); PLATELET COUNT # 260 x10^3/uL (182-369); RDW 14.1 % (12.5-17.0)
[2024-12-26 20:34] LABS: INR 1.41 (0.83-1.09); PROTHROMBIN TIME (PATIENT) 15.5 SEC (9.7-13.0)
[2024-12-26 20:37] LABS: ACTIVATED PTT 36.9 SECONDS (25.2-36.5)
[2024-12-26 20:46] LABS: POTASSIUM 3.7 mmol/L (3.5-5.1)
[2024-12-26 20:48] LABS: ALBUMIN 3.4 g/dl (3.4-5.0); BLOOD UREA NITROGEN 18.8 mg/dL (7-18); MAGNESIUM 2.4 mg/dL (1.8-2.4)
[2024-12-26 20:53] LABS: BILIRUBIN,TOTAL 0.4 mg/dL (0.2-1); TOT PROT 7.8 g/dl (6.4-8.2)
[2024-12-26] MEDS ORDERED: FUROSEMIDE 40 MG/4 ML INJECTABLE VIAL ONE (22:52)
[2024-12-26] MEDS: FUROSEMIDE 40 MG/4 ML INJECTABLE VIAL IVPUSH ONE (23:04)
[2024-12-27] MEDS ORDERED: ALBUTEROL SO4 HFA INHALER IH PRN (00:02)
[2024-12-27 00:03] VITALS: BMI 25.0
[2024-12-27] MEDS ORDERED: ALBUTEROL SO4 2.5/IPRATROPIUM 0.5 INH SOL 3 ML VIAL.NEB. NEB PRN (00:04)
[2024-12-27] MEDS: CARVEDILOL 6.25 MG TABLET (FP) PO SCH (00:10)
[2024-12-27] MEDS: INSULIN ASPART SLIDING SCALE (NOVOLOG) 1 VIAL SQ SCH (07:24)
[2024-12-27 07:50] LABS: HEMATOCRIT 37.2 % (34.1-44.9); HEMOGLOBIN 11.2 g/dL (11.2-15.7); MCHC 30.1 g/dl (32.2-35.5); MEAN CELL VOLUME 92.5 fl (79.4-94.8); MEAN PLT VOLUME 10.4 fl (9.4-12.3); PLATELET COUNT # 237 x10^3/uL (182-369); RDW 14.1 % (12.5-17.0)
[2024-12-27 08:16] LABS: POTASSIUM 3.3 mmol/L (3.5-5.1)
[2024-12-27 08:33] LABS: CALCIUM 8.6 mg/dL (8.5-10.1)
[2024-12-27 08:34] LABS: BLOOD UREA NITROGEN 17.8 mg/dL (7-18)
[2024-12-27 08:38] LABS: BILIRUBIN,TOTAL 0.4 mg/dL (0.2-1)
[2024-12-27 08:40] LABS: TOT PROT 6.8 g/dl (6.4-8.2)
[2024-12-27] MEDS: ENOXAPARIN NA (PORCINE) 40 MG/0.4 ML DISP.SYRIN SQ SCH (10:00)
[2024-12-27] MEDS: FUROSEMIDE 40 MG/4 ML INJECTABLE VIAL IVPUSH SCH (10:00)
[2024-12-27] MEDS: LISINOPRIL 5 MG TABLET PO SCH (10:01)
[2024-12-27] MEDS: MECLIZINE HCL 12.5 MG TABLET PO SCH (10:01)
[2024-12-27] MEDS: ASPIRIN 81 MG CHEWABLE TABLETS PO SCH (10:01)
[2024-12-27] MEDS: amLODIPine BESYLATE 5 MG TABLET (FP) PO SCH (10:01)
[2024-12-27] MEDS: POTASSIUM CHLORIDE ORAL LIQUID 20 MEQ/15 ML PO ONE (10:13)
[2024-12-27] MEDS ORDERED: MECLIZINE HCL 12.5 MG TABLET PO PRN (10:23)
[2024-12-27] MEDS ORDERED: LISINOPRIL 5 MG TABLET PO SCH (11:37)
[2024-12-27] MEDS ORDERED: CARVEDILOL 6.25 MG TABLET (FP) PO SCH (11:37)
[2024-12-27] MEDS: EMPAGLIFLOZIN (JARDIANCE) 10 MG TABLET PO SCH (12:30)
[2024-12-27] MEDS: ATORVASTATIN CA 10 MG TABLET (FP) PO SCH (21:14)
[2024-12-27] MEDS: CARVEDILOL 12.5 MG TABLET (FP) PO SCH (21:14)
[2024-12-27] MEDS: GABAPENTIN 300 MG CAPSULE PO SCH (21:15)
[2024-12-28 08:02] LABS: ALBUMIN 3.2 g/dl (3.4-5.0); BLOOD UREA NITROGEN 24.8 mg/dL (7-18); CALCIUM 8.7 mg/dL (8.5-10.1)
[2024-12-28 08:05] LABS: CREATININE 1.2 mg/dL (0.55-1.3)
[2024-12-28 08:07] LABS: BILIRUBIN,TOTAL 0.6 mg/dL (0.2-1)
[2024-12-28] MEDS ORDERED: LISINOPRIL 10 MG TABLET PO SCH (10:00)
[2024-12-28] MEDS ORDERED: LOSARTAN POTASSIUM 50 MG TABLET PO SCH (10:00)
[2024-12-28 10:11] LABS: HEMATOCRIT 37.2 % (34.1-44.9); HEMOGLOBIN 11.5 g/dL (11.2-15.7); MCHC 30.9 g/dl (32.2-35.5); MEAN CELL VOLUME 95.9 fl (79.4-94.8); MEAN PLT VOLUME 10.7 fl (9.4-12.3); PLATELET COUNT # 215 x10^3/uL (182-369); RDW 14.2 % (12.5-17.0)
[2024-12-28] MEDS: FUROSEMIDE 40 MG/4 ML INJECTABLE VIAL IVPUSH SCH (10:18)
[2024-12-28] MEDS: ENOXAPARIN NA (PORCINE) 40 MG/0.4 ML DISP.SYRIN SQ SCH (10:18)
[2024-12-28] MEDS: SPIRONOLACTONE 25 MG TABLET PO SCH (10:19)
[2024-12-28] MEDS: LOSARTAN POTASSIUM 50 MG TABLET PO SCH (10:19)
[2024-12-28 17:39] VITALS: BP 155/71; PULSE 70; RESP 16; TEMP 97.3
[2024-12-28] MEDS ORDERED: SACUBITRIL/VALSARTAN 24 MG-26 MG TABLET PO SCH (22:00)
== END 2024-12-28 18:15 | disposition short-term general hospital (02) | DRG 291 ==
LOC: JER 18:07 → JERBED 21:56 → J4W 23:31 → OBSVTOIN 12-27 09:17
PROVIDERS: ADMIT Hospitalist; ATTEND Nurse Practitioner Family
DX: I11.0 Hypertensive heart disease with heart failure (principal); I50.23 Acute on chronic systolic (congestive) heart failure; J96.00 Acute respiratory failure, unspecified whether with hypoxia or hypercapnia; J45.909 Unspecified asthma, uncomplicated; E11.51 Type 2 diabetes mellitus with diabetic peripheral angiopathy without gangrene; I08.2 Rheumatic disorders of both aortic and tricuspid valves; I25.10 Atherosclerotic heart disease of native coronary artery without angina pectoris; E78.5 Hyperlipidemia, unspecified; Z95.1 Presence of aortocoronary bypass graft; K21.9 Gastro-esophageal reflux disease without esophagitis; G47.00 Insomnia, unspecified; F41.0 Panic disorder [episodic paroxysmal anxiety]; F41.8 Other specified anxiety disorders; M13.862 Other specified arthritis, left knee; M13.861 Other specified arthritis, right knee; E87.6 Hypokalemia
CPT/HCPCS: 0241U-QW; 36415; 71045-TC-FY; 80053; 82962; 83735; 83880; 84484; 85025; 85027; 85610; 85730; 86850; 86900; 86901; 93005; 93010; 93306-TC; 99285-25; G0378

== ENCOUNTER 2025-04-13 15:43 | Inpatient (IN) | payer OTHER, BC ==
[2025-04-13] MEDS ORDERED: MECLIZINE HCL 25 MG TABLET (FP) ONE (17:59)
[2025-04-13] MEDS: MECLIZINE HCL 25 MG TABLET (FP) PO ONE (18:09)
[2025-04-13] MEDS: SODIUM CHLORIDE 0.9% 500 ML INFUS.BAG IV ONE ×2 (18:37→20:00)
[2025-04-13 18:54] LABS: ABSOLUTE IMMATURE GRANULOCYTES 0.04 x10^3/uL (0.0-0.031); BASOPHILS # 0.04 x10^3/uL (0.01-0.08); EOSINOPHIL % 2.6 % (0.7-5.8); EOSINOPHILS # 0.25 x10^3/uL (0.04-0.36); MCHC 32.9 g/dl (32.2-35.5); MEAN CELL VOLUME 91.8 fl (79.4-94.8); MEAN PLT VOLUME 10.7 fl (9.4-12.3); MONOCYTE # 0.56 x10^3/uL (0.24-0.86); MONOCYTE % 5.8 % (4.7-12.5); RDW 15.4 % (12.5-17.0)
[2025-04-13 19:02] LABS: INR 1.25 (0.83-1.09); PROTHROMBIN TIME (PATIENT) 13.6 SEC (9.7-13.0)
[2025-04-13 19:04] LABS: ACTIVATED PTT 35.7 SECONDS (25.2-36.5)
[2025-04-13 19:05] LABS: EPI CELLS 22 /uL (0-25.1); HYALINE CASTS 1 /uL (0-3.1); URINE APPEARANCE TURBID; URINE BACTERIA 4325 /uL (0-1359); URINE BILIRUBIN NEGATIVE (NEGATIVE); URINE COLOR YELLOW; URINE GLUCOSE (UA) TRACE (NEGATIVE); URINE KETONE NEGATIVE (NEGATIVE); URINE LEUK ESTERASE 3+ (NEGATIVE); URINE NITRITE NEGATIVE (NEGATIVE); URINE PROTEIN 1+ (NEGATIVE); URINE RBC 67 /uL (0-23.9); URINE UROBILINOGEN 0.2 mg/dL (0.2-1.0); URINE WBC 7543 /uL (0-25.8)
[2025-04-13 19:13] LABS: CO2 29.0 mmol/L (21-32); GLUCOSE,RANDOM 125.0 mg/dL (74-106)
[2025-04-13 19:16] LABS: CREATININE 2.5 mg/dL (0.55-1.3); SGOT/AST 38.0 U/L (15-37); SGPT/ALT 35.0 U/L (13-61)
[2025-04-13 19:18] LABS: TOT PROT 8.1 g/dl (6.4-8.2)
[2025-04-13 19:19] LABS: ALK PHOS 96.0 U/L (45-117)
[2025-04-13] MEDS ORDERED: CEFTRIAXONE 1 GM/50 ML BAG ONE (19:36)
[2025-04-13 19:53] LABS: YEAST NOT SEEN (NEGATIVE)
[2025-04-13 19:56] LABS: N-TERMINAL BNP 2457.1 pg/ml (5-450)
[2025-04-13] MEDS: CEFTRIAXONE 1,000 MG in DEXTROSE 5%-WATER - 50 ML IVPB ONE (20:00)
[2025-04-13 20:03] LABS: HIV INTERPRETATION NEGATIVE (NEGATIVE)
[2025-04-13 20:04] LABS: HCV DIAGNOSTIC IN-HOUSE W/RFLX NON-REACTIVE (NONREACTIVE)
[2025-04-13] MEDS ORDERED: HEPARIN NA (PORCINE) 5,000 UNITS/ML 1ML VIAL ONE (22:16)
[2025-04-13] MEDS: HEPARIN NA (PORCINE) 5,000 UNITS/ML 1ML VIAL SQ SCH (22:27)
[2025-04-14 01:03] VITALS: BMI 11.5
[2025-04-14] MEDS ORDERED: ALBUTEROL SO4 HFA INHALER IH PRN (01:51)
[2025-04-14] MEDS ORDERED: ACETAMINOPHEN 325 MG TABLET (FP) PO PRN (01:56)
[2025-04-14] MEDS: GABAPENTIN 300 MG CAPSULE PO ONE (02:01)
[2025-04-14] MEDS ORDERED: MECLIZINE HCL 12.5 MG TABLET PO PRN (02:36)
[2025-04-14] MEDS: FUROSEMIDE 40 MG TABLET (FP) PO SCH (05:55)
[2025-04-14] MEDS: INSULIN ASPART SLIDING SCALE (NOVOLOG) 1 VIAL SQ SCH (06:00)
[2025-04-14 08:23] LABS: ABSOLUTE IMMATURE GRANULOCYTES 0.03 x10^3/uL (0.0-0.031); BASOPHILS # 0.06 x10^3/uL (0.01-0.08); EOSINOPHIL % 3.1 % (0.7-5.8); EOSINOPHILS # 0.30 x10^3/uL (0.04-0.36); MCHC 31.5 g/dl (32.2-35.5); MEAN CELL VOLUME 92.8 fl (79.4-94.8); MEAN PLT VOLUME 11.0 fl (9.4-12.3); MONOCYTE # 0.55 x10^3/uL (0.24-0.86); MONOCYTE % 5.7 % (4.7-12.5); RDW 15.3 % (12.5-17.0)
[2025-04-14 09:08] LABS: URINE APPEARANCE CLOUDY; URINE COLOR YELLOW
[2025-04-14 09:09] LABS: URINE BILIRUBIN NEGATIVE (NEGATIVE); URINE GLUCOSE (UA) 1+ (NEGATIVE); URINE KETONE NEGATIVE (NEGATIVE)
[2025-04-14 09:10] LABS: URINE LEUK ESTERASE 3+ (NEGATIVE); URINE NITRITE NEGATIVE (NEGATIVE); URINE PROTEIN NEGATIVE (NEGATIVE); URINE UROBILINOGEN 0.2 mg/dL (0.2-1.0)
[2025-04-14 09:25] LABS: CO2 28.0 mmol/L (21-32); GLUCOSE,RANDOM 89.0 mg/dL (74-106)
[2025-04-14 09:27] LABS: SGOT/AST 33.0 U/L (15-37); SGPT/ALT 33.0 U/L (13-61)
[2025-04-14 09:28] LABS: CREATININE 1.9 mg/dL (0.55-1.3)
[2025-04-14 09:29] LABS: TOT PROT 7.8 g/dl (6.4-8.2)
[2025-04-14 09:30] LABS: ALK PHOS 92.0 U/L (45-117)
[2025-04-14] MEDS: ASPIRIN 81 MG CHEWABLE TABLETS PO SCH (09:32)
[2025-04-14] MEDS: CARVEDILOL 25 MG TABLET (FP) PO SCH (09:32)
[2025-04-14] MEDS: CEFTRIAXONE 1 GM in DEXTROSE 5%-WATER - 50 ML IVPB SCH (09:51)
[2025-04-14] MEDS ORDERED: CEFTRIAXONE 1,000 MG in DEXTROSE 5%-WATER - 50 ML IVPB SCH (10:00)
[2025-04-14] MEDS ORDERED: amLODIPine BESYLATE 2.5 MG TABLET (FP) PO SCH (10:00)
[2025-04-14] MEDS ORDERED: SPIRONOLACTONE 25 MG TABLET PO SCH (10:00)
[2025-04-14] MEDS: ATORVASTATIN CA 10 MG TABLET (FP) PO SCH (22:19)
[2025-04-14] MEDS: MELATONIN 5 MG TABLETS PO PRN (22:20)
[2025-04-14] MEDS: GABAPENTIN 300 MG CAPSULE PO SCH (22:20)
[2025-04-15 08:10] LABS: MCHC 31.9 g/dl (32.2-35.5); MEAN CELL VOLUME 92.5 fl (79.4-94.8); MEAN PLT VOLUME 10.7 fl (9.4-12.3); RDW 15.2 % (12.5-17.0)
[2025-04-15 08:34] LABS: CO2 29.0 mmol/L (21-32); GLUCOSE,RANDOM 98.0 mg/dL (74-106)
[2025-04-15 08:37] LABS: CREATININE 1.6 mg/dL (0.55-1.3); SGOT/AST 50.0 U/L (15-37); SGPT/ALT 46.0 U/L (13-61)
[2025-04-15 08:39] LABS: ALK PHOS 83.0 U/L (45-117); TOT PROT 6.8 g/dl (6.4-8.2)
[2025-04-15 14:30] VITALS: BP 120/47; PULSE 59; RESP 14; TEMP 97.5
== END 2025-04-15 15:57 | disposition home or self-care (01) | DRG 683 ==
LOC: JER 15:43 → OBSVTOIN 20:29 → JERBED 20:29 → J4S 23:47
PROVIDERS: ADMIT Student in an Organized Health Care Education/Training Program; ATTEND Internal Medicine
DX: N17.9 Acute kidney failure, unspecified (principal); E87.1 Hypo-osmolality and hyponatremia; N39.0 Urinary tract infection, site not specified; I50.22 Chronic systolic (congestive) heart failure; E11.9 Type 2 diabetes mellitus without complications; E78.5 Hyperlipidemia, unspecified; K21.9 Gastro-esophageal reflux disease without esophagitis; I95.1 Orthostatic hypotension; E87.6 Hypokalemia; I11.0 Hypertensive heart disease with heart failure; I25.10 Atherosclerotic heart disease of native coronary artery without angina pectoris; Z95.5 Presence of coronary angioplasty implant and graft; E86.0 Dehydration; E86.1 Hypovolemia; Z95.1 Presence of aortocoronary bypass graft
CPT/HCPCS: 36415; 71045-TC-FY; 80053; 81003; 82962; 83036; 83735; 83880; 84100; 84300; 84484; 84540; 85025; 85027; 85610; 85730; 86803; 87086; 87389; 87637-QW; 93005; 93010; 97116-GP; 97161-GP; 99285-25